=== PATIENT | female | born 1980 | race Caucasian/White ===

== ENCOUNTER 2016-11-02 10:06 | Emergency (ER) | payer OTHER, BC ==
[2016-11-02] MEDS ORDERED: DEXAMETHASONE SOD PHOS 10 MG/1 ML VIAL ONE (10:59)
[2016-11-02] MEDS ORDERED: IBUPROFEN 800 MG TABLET ONE (10:59)
[2016-11-02 11:42] LABS: ALB/GLOB RATIO 1.3 (>1.0); ALBUMIN 4.3 gm/dL (3.5-5.7); CALCIUM 9.5 mg/dL (8.6-10.3)
[2016-11-02 11:56] LABS: BASO % 0.4 % (0.2-1.0); EOS # 0.1 (0.0-0.5); EOS % 0.7 % (0.9-2.9); HEMATOCRIT 42.8 % (37.0-47.0); HEMOGLOBIN 14.3 gm/l (12.0-16.0); IMM NEUT% 0.2 % (0-1); LYMPH # 2.5 (1.0-4.8); MEAN CELL VOLUME 94.5 fl (81.0-99.0); MEAN CORPUSCULAR HEMOGLOBIN 31.6 pg (27.0-31.0); MEAN CORPUSCULAR HGB CONC 33.4 g/dl (33.0-37.0); MEAN PLATELET VOLUME 11.6 fl (7.4-10.4); MONO # 0.7 (0.0-0.8); MONO % 7.2 % (4-12); NEUT % 64.5 % (43-75); PLATELET COUNT 243 K/mm3 (130-400); RED CELL DISTRIBUTION WIDTH 12.8 % (11.5-14.5)
[2016-11-02 12:53] LABS: MONO TEST NEGATIVE (NEGATIVE)
== END 2016-11-02 13:25 | disposition home or self-care (01) ==
LOC: ED 10:06
DX: J02.9 Acute pharyngitis, unspecified (principal); R51 Headache; F17.210 Nicotine dependence, cigarettes, uncomplicated
CPT/HCPCS: 85025; 80053; 86308; 87880; 99283 ×2; 36415; J1100; A9270